=== PATIENT | male | born 2000 | race Caucasian/White ===

== ENCOUNTER 2023-07-08 19:23 | Outpatient (REF) | payer MEDICAID, SELFPAY ==
[2023-07-08 20:10] LABS: Influenza A PCR NEGATIVE (Negative); Influenza B PCR NEGATIVE (Negative); Resp Syncy Virus RNA Qual PCR NEGATIVE (Negative); SARS COV2 PCR INHOUSE NEGATIVE (Negative)
== END 2023-07-08 19:24 | disposition home or self-care (01) ==
LOC: HO.HHCLNP 19:23
PROVIDERS: Visit Provider Internal Medicine
DX: R05.9 Cough, unspecified (principal); Z20.822 Contact with and (suspected) exposure to COVID-19
CPT/HCPCS: 0241U

== ENCOUNTER 2023-09-23 11:41 | Outpatient (REF) | payer MEDICAID, SELFPAY ==
--- NOTE | ~2023-09-23 | XR_ITS ---
EXAMINATION: XR CHEST CLINICAL INFORMATION: Cough COMPARISON: 08/21/2018 TECHNIQUE: 2 views of the chest were obtained. FINDINGS: There is no gross pneumothorax. Heart size is normal. No pleural effusion. No focal consolidation to suggest pneumonia. Mild degenerative changes in the thoracic spine. XR/XR chest 2V IMPRESSION: No evidence of pneumonia.
== END 2023-09-23 11:42 | disposition home or self-care (01) ==
LOC: HO.HHCX 11:41
PROVIDERS: Visit Provider Emergency Medicine
DX: J45.41 Moderate persistent asthma with (acute) exacerbation (principal)
CPT/HCPCS: 71046